=== PATIENT | male | born 1995 | race Caucasian/White ===

== ENCOUNTER 2021-04-30 21:55 | Outpatient (REF) | payer OTHER, SELFPAY ==
[2021-04-30 22:26] LABS: COVID-19 Test Negative (Negative)
== END 2021-04-30 21:56 | disposition home or self-care (01) ==
LOC: HO.LAB 21:55
PROVIDERS: Visit Provider Internal Medicine
DX: Z20.822 Contact with and (suspected) exposure to COVID-19 (principal)
CPT/HCPCS: 36415; 87635

== ENCOUNTER 2021-05-02 01:00 | Outpatient (REF) | payer OTHER, SELFPAY ==
[2021-05-02 01:32] LABS: COVID-19 Test Negative (Negative)
== END 2021-05-02 01:01 | disposition home or self-care (01) ==
LOC: HO.ED 01:00
PROVIDERS: Visit Provider Internal Medicine
DX: Z20.822 Contact with and (suspected) exposure to COVID-19 (principal)
CPT/HCPCS: 36415; 87635

== ENCOUNTER 2021-08-25 01:23 | Outpatient (REF) | payer OTHER, SELFPAY ==
[2021-08-25 01:48] LABS: COVID-19 Test Negative (Negative)
== END 2021-08-25 01:24 | disposition home or self-care (01) ==
LOC: HO.LAB 01:23
PROVIDERS: Visit Provider Emergency Medicine
DX: Z20.822 Contact with and (suspected) exposure to COVID-19 (principal)
CPT/HCPCS: 87635